=== PATIENT | male | born 1965 ===

== ENCOUNTER 2016-10-28 20:01 | Emergency (ER) | payer BC ==
--- NOTE | 2016-10-28 20:51 | DIAGNOSTIC IMAGING REPORT ---
PROCEDURE: XR TIBIA AND FIBULA - RIGHT INDICATION: TRAUMA/INJURY TECHNIQUE: AP and lateral views. COMPARISON: Comparison made radiographs of the right ankle (08/18/2013), and right tibia and fibula (12/15/2010). FINDINGS: Status post open reduction internal fixation of midshaft right fibular fracture transfixed with a side plate and multiple screws (anatomic position). No evidence of loosening. Status post repair of right distal tibiofibular syndesmosis with metal anchors and osteotomies traversing the distal tibia and fibula. Associated interosseous callus formation. No evidence of osteomyelitis. IMPRESSION: 1. Vessels of reduction internal fixation of right midshaft fibular fracture (metal hardware - - anatomic position). 2. Status post repair of distal tibiofibular syndesmosis. 3. No evidence of acute process.
--- NOTE | 2016-10-28 22:02 | ED ORDER SUMMARY ---
..... Patient: EAGLE PAL SR OrderSheet [facility] VisitID: [id number] [place] [address] 51y, M Registration Date/Time: 10/28/2016 ORDER SHEET Weight: 93.8 kg (stated) Allergies: Vicodin GENERAL ORDERS: US Venous Right Urgent (20:15 10/28/2016 EKoroleva P.A.-C) (Ack 20:18 ALawrence ER Tech1) (21:19 MCampbell) Tibia/Fibula Right Urgent (20:15 10/28/2016 EKoroleva P.A.-C) (Ack 20:18 ALawrence ER Tech1) (20:24 ALawrence ER Tech1) CBC w Diff Urgent (20:15 10/28/2016 EKoroleva P.A.-C) (Ack 20:18 ALawrence ER Tech1) (21:48 ALawrence ER Tech1) BMP Urgent (20:15 10/28/2016 EKoroleva P.A.-C) (Ack 20:18 ALawrence ER Tech1) (21:48 ALawrence ER Tech1) Sed Rate Urgent (20:15 10/28/2016 EKoroleva P.A.-C) (Ack 20:18 ALawrence ER Tech1) (21:49 ALawrence ER Tech1) CRP Urgent (20:15 10/28/2016 EKoroleva P.A.-C) (Ack 20:18 ALawrence ER Tech1) (21:49 ALawrence ER Tech1) PCT (Procalcitonin) Urgent (20:16 10/28/2016 EKoroleva P.A.-C) (Ack 20:18 ALawrence ER Tech1) (21:49 ALawrence ER Tech1) PT with INR Urgent (20:16 10/28/2016 EKoroleva P.A.-C) (Ack 20:18 ALawrence ER Tech1) (21:49 ALawrence ER Tech1) PTT Urgent (20:16 10/28/2016 EKoroleva P.A.-C) (Ack 20:18 ALawrence ER Tech1) (21:49 ALawrence ER Tech1) MEDICATION ORDERS: Percocet PO 5/325 mg (HIGH ALERT MEDICATION, NOW) (21:48 10/28/2016 Roland Gomez) (21:54 Jim Wiley) Bactrim DS PO (Tablet 800-160 mg) 1 tab (NOW) (22:00 10/28/2016 Roland Gomez) IV FLUIDS: ORDER SHEET NOTES: [Electronically signed by Indigo Magallanes P.A.-C (22:45 10/28/2016)] [Electronically signed by Radha Valladares R.N. (22:57 10/28/2016)] [Electronically locked/signed by Radha Valladares R.N. (22:57 10/28/2016)]
--- NOTE | 2016-10-28 22:02 | ED CLINICAL REPORT ---
Clinical Report - Physicians/Mid Levels [facility] [address] [place] [address] 10/28/2016 20:01 Patient: EAGLE PAL SR Time Seen: 20:18 Oct 28 2016. Arrived- By private vehicle. Historian- patient. HISTORY OF PRESENT ILLNESS Chief Complaint: Chief Complaint- Right lower extremity pain. The injury happened 8 days. This was not a twisting injury. Patient denies injury to the head or neck. (patient fell from about 7-8 days previously, has been having right lower extremity pain. Today pain worsened. Independent of any activity or movement. Patient with distant history of DVT. Patient with recent surgery, for hernia, as well as cholecystectomy.). REVIEW OF SYSTEMS The patient complains of pain on weight bearing. All systems otherwise negative, except as recorded above. PAST HISTORY The patient has not had a prior injury to the same area. ADDITIONAL NOTES The nursing notes have been reviewed. PHYSICAL EXAM Appearance: Alert. Head: Head atraumatic. ENT: Ears normal. Neck: Normal inspection. CVS: Normal heart rate and rhythm. Heart sounds normal. No cardiac murmur. Respiratory: No respiratory distress. Breath sounds normal. No decreased air movement or chest wall injury. Abdomen: No visible injury. Soft. Bowel sounds normal. No abdominal tenderness. Skin: Skin warm. (mild erythema at distal tib/fib with swelling). Extremities: Right knee. Right leg: erythema, tenderness and swelling located in the anterior and posterior aspect of mid and lower leg. No abrasion. Right ankle. No tenderness or swelling. Neuro, Vascular and Tendons: Vascular status intact. Motor intact. LABS, X-RAYS, AND EKG Rt Tib/Fib X-ray: (IMPRESSION: 1. Vessels of reduction internal fixation of right midshaft fibular fracture (metal hardware - - anatomic position). 2. Status post repair of distal tibiofibular syndesmosis. 3. No evidence of acute process. Electronically Final signed by:Clifton Bryant MD 10/28/2016 8:46:16 PM). Laboratory Tests: CBC w Diff: (DORINDA: 10/28/2016 21:45) ( MsgRcvd 10/28/2016 22:01) IP Test Result Flag Units (Reference) WHITE BLOOD COUNT 7.1 K/uL (4.5-11.5) RED BLOOD COUNT 4.33 L M/uL (4.50-5.90) CLOT FOUND IN SPECIMEN. PLATLET WAS NOT REPORTED PER ER. HEMOGLOBIN 12.9 L gm/dL (13.5-17.5) HEMATOCRIT 37.9 L % (41.0-53.0) MEAN CELL VOLUME 88 fL (80-100) MEAN CORPUSCULAR HGB 30 pg (26-34) MEAN CORPUSCULAR HGB CONC 34 g/dL (31-37) RED CELL DISTRIBUTION WIDTH 13.6 % (11.6-14.8) NEUTROPHIL % 57.0 % (50-75) LYMPH % 31.6 % (25-40) MONO % 7.5 % (3-14) EOSINOPHIL % 3.3 % (0-4) BASOPHIL % 0.6 % (0-2) PT with INR: (DORINDA: 10/28/2016 21:45) ( [facility] 10/28/2016 22:11) IP Test Result Flag Units (Reference) INR 0.9 (0.8-1.2) Low Intensity Therapy: INR 1.5-2.0 PT range 18.5-23.1Mod.Intensity Therapy: INR 2.0-3.0 PT range 23.1-31.5High Intensity Therapy: INR 2.5-3.5 PT range 27.4-35.5High Intensity Therapy 2: INR 3.0-4.0 PT range 31.5-39.3 [id number]: (DORINDA: 10/28/2016 20:33) ( [facility] 10/28/2016 21:28) Final results Test Result Flag Units (Reference) PROCALCITONIN <0.5 ng/mL (0-0.5) PCT Concentration: Interpretation : Risk/option for action PCT <=0.5 ng/mL : Systemic : Low risk forinfection(sepsis): progression to severeis not likely. : systemic infection.Local bacterial : CAUTION-PCT levelsinfection is : below 0.5 ng/mL do notpossible. : exclude an infection,because localizedinfections (withoutsystemic signs) may beassociated with suchlow levels. If PCT ismeasured very earlyafter a bacterialchallenge (usually <6hours), these valuesmay still be low. Inthis case PCT shouldbe re-assessed 6-24hours later. PCT >0.5 and : Systemic infection: Moderate risk for<= 2 ng/mL : (sepsis) is : progression to severepossible, but : systemic infection.other conditions : The patient should beare known to : closely monitoredelevate PCT. : both clinically andby re-assessing PCTwithin 6-24 hours. PCT > 2 ng/mL : Systemic infection: High risk for(sepsis) is likely: progression to severeunless other : systemic infection.causes are known. : PCT >= 10 ng/mL : Important systemic: High likelihood ofinflammatory : severe sepsis orresponse, almost : septic shock.exclusively due to:severe bacterial :sepsis or septic :shock. : BMP: (DORINDA: 10/28/2016 20:33) ( MsgRcvd 10/28/2016 21:03) Final results Test Result Flag Units (Reference) GLUCOSE 111 H mg/dL (70-110) BUN 12 mg/dL (7-18) CREATININE 0.8 mg/dL (0.6-1.3) Estimated GFR >60 mL/min Estimated GFR- >60 mL/min Note: Persistent reduction over 3 months in eGFR<60 mL/min/1.73 m2 defines CKD. Patients with eGFR values>=60 mL/min/1.73 m2 may also have CKD if evidence ofpersistent proteinuria. Additional information may be foundat www.kidney.org. SODIUM 139 mmol/L (136-145) POTASSIUM 3.9 mmol/L (3.5-5.1) CHLORIDE 105 mmol/L (98-107) CARBON DIOXIDE 26 mmol/L (21-32) CALCIUM 8.7 mg/dL (8.5-10.1) C-REACTIVE PROTEIN < 0.2 mg/dL (0.0-0.9) . Note - Tests: (US VEnous R LE: neg for dvt). PROGRESS AND PROCEDURES Course of Care: patient with no signs of DVT. He is afebrile. Normal cardiac. Labs are largely unremarkable, no signs of leukocytosis. Area of erythema present, concerning for acute cellulitis. Patient with good distal pulses, and words to the extremity. No signs of acute fracture. Patient is asked to elevate his right lower extremity, follow up with his primary care provider. 10/28/2016 22:31 BP: 112/63. HR: 52. RR: 16. O2 saturation: 100%. Temp: 97.7 F. Pain level now: 8/10. Patient is stable. Patient/family counseled. Disposition: Discharged. CLINICAL IMPRESSION Cellulitis of the right lower leg. INSTRUCTIONS (NO SIGNS OF BLOOD CLOT Xray with no signs of broken bones). Prescription Medications: Oxycodone/APAP 5 mg/325 mg: take 1 tablet orally every 6 hours as needed for pain. Dispense ten (10). No refill. Bactrim DS 800 mg / 160 mg: take 1 tablet orally every 12 hours for 10 days. No refill. Substitution is permissible. Follow-up: Follow up with your doctor 2-3 days [place] in two for wound check. (Electronically signed by Indigo Magallanes P.A.-C 10/28/2016 22:45)
--- NOTE | 2016-10-28 22:02 | ED NURSING NOTES ---
Clinical Report - Nurses [place] [address] [place] [address] 10/28/2016 20:01 Patient: EAGLE PAL SR TRIAGE Triage time 20:Oct 28 2016. Acuity: LEVEL 3. Chief Complaint: RIGHT LOWER EXTREMITY PAIN, SWELLING and REDNESS. Alert. No acute distress. JACK COMA SCORE: Ear[place] Coma Scale: 15- eyes open spontaneously (4); best verbal response- oriented x 4 (5); best motor response- obeys commands (6). --20:25 Radha Valladares R.N. 20:10 10/28/16. BP: 123/75. HR: 56. RR: 12. O2 saturation: 99%. Temp: 97.9 F. Pain level now: 12/11. --20:25 Radha Valladares R.N. Weight: 93.8 kg stated. Height/Length: 70 inches Per Patient. BMI: 29.7. --20:15 Radha Valladares R.N. Medications CloNIDine HCl Oral (Tablet 0.1 mg) 1 tablet, daily. --20:18 Radha Valladares R.N. Docusate Sodium Oral (Capsule 100 mg) 2 capsules, as needed. --20:18 Radha Valladares R.N. Ibuprofen Oral, as needed. --20:19 Radha Valladares R.N. Gabapentin (PHN) Oral (Tablet 300 mg) 1 tablet. --20:19 Radha Valladares R.N. Omeprazole Oral (Tablet Delayed Release 20 mg) 1 tablet, daily. --20:20 Radha Valladares R.N. OxyCODONE HCl Oral (Tablet 5 mg) 2 tablets, 4x a day. --20:20 Radha Valladares R.N. Suboxone Sublingual (Film 8-2 mg), daily. --20:21 Radha Valladares R.N. Tylenol Oral, PRN. --20:22 Radha Valladares R.N. Allergies Vicodin. --20:22 Radha Valladares R.N. History Arrived by private vehicle. Historian: patient. Accompanied by family and spouse. Injury occurred. Location of injuries: right leg. This occurred today. ( pt states that he fell off a boat a few days ago and is unsure if he injured his leg at that time.). He has had swelling, redness and trouble walking. Treatment [employer]: None. PAST MEDICAL HX: Tetanus status: up-to-date. Immunizations: status is unknown. SOCIAL HX: Smoker- current status unknown. No alcohol use or drug use. No infectious disease exposure. SELF HARM ASSESSMENT: A self harm assessment was performed. The patient answered "no" to the question "Do you have thoughts of harming or killing yourself?" and "Have you recently had thoughts about harming or killing others?". FALL RISK ASSESSMENT: Fall risk assessment completed. No fall risk identified. NUTRITIONAL RISK ASSESSMENT: The nutritional risk assessment revealed no deficiencies. FUNCTIONAL ASSESSMENT: Functional assessment: no impairments noted. LEARNING NEEDS ASSESSMENT: The learning needs assessment revealed no barriers. ABUSE ASSESSMENT: Abuse assessment: The patient was asked "Do you feel safe in your home?". SKIN INTEGRITY ASSESSMENT: Skin integrity risk assessment completed. No skin integrity risk identified. --20:25 Radha Valladares R.N. 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 Substance Abuse. Paresthesia. Back Injury. Lumbar Strain. Abdominal Pain. Hernia. Back Pain. Prediabetic. Cellulitis. Osumsvy-Vecbl-Qlebf disease. Hypertension. Lower Extremity Pain. Fall. Fibula Fracture. Sprain. Diabetes Mellitus. Tetanus Status. Immunizations. --20:23 Radha Valladares R.N. ADDITIONAL SURGERIES: Ankle surgery. Cholecystectomy. Hernia Repair. Kidney surgery. Previous Abdominal Surgery. --20:23 Radha Valladares R.N. Interventions ID band on patient. To room. --20:25 Radha Valladares R.N. PHYSICAL ASSESSMENT Ambulatory to room. GENERAL / NEURO / PSYCH: Oriented X 4. Alert. Appears in pain. He has had pre-existing numbness of the right leg and foot. EXTREMITIES: Erythema to right leg, right ankle and right foot. Limited ROM present in the left ankle. Non-pitting edema of the right lower extremity involving the foot, ankle and lower leg. Right leg: tenderness, swelling and erythema. Right ankle: tenderness, swelling and erythema. SKIN: Skin is warm and dry. --20:26 Radha Valladares R.N. NURSING PROGRESS NOTES Patient gowned. Patient identifiers checked. Call light placed in reach. Side rails up x 1. Bed placed in lowest position. Brakes of bed on. --20:26 Radha Valladares R.N. Patient ID band checked for patient name and birthdate: patient confirmed. Instructions provided to collect clean catch urine and patient verbalized understanding. Clean catch urine collected with return of yellow-colored clear urine; sample sent to lab for urinalysis, culture and drug screen. Specimen labeled in the presence of the patient. --20:29 Radha Valladares R.N. 21:26 10/28/16. BP: 115/70. HR: 55. RR: 16. O2 saturation: 100%. Pain level now: 12/11. --21:26 Radha Valladares R.N. The patient is calm. GENERAL / NEURO / PSYCH: Alert. Oriented X 4. RESPIRATORY: No respiratory distress. CVS: Capillary refill less than 2 seconds. SKIN: Skin is warm and dry. --21:26 Radha Valladares R.N. 21:45. Patient ID band checked for patient name and birthdate: patient confirmed. Blood samples drawn from the right forearm with syringe and 23g butterfly by tech per protocol ; labeled in presence of the patient and sent to lab: purple and blue top. --21:47 Zuleika Miller ER Tech1 21:54 10/28/2016 Percocet (Oxycodone-Acetaminophen) PO 5/325 mg Tablets 1 tab given. Allergies verified, confirmed 5 rights and sedative warning given to the patient. --21:54 Radha Valladares R.N. DISPOSITION / DISCHARGE Departure time: 22:33 Cristian 27 2016. Condition at departure: improved. No learning barriers present. Discharge instructions provided and reviewed with the patient. Reviewed medication(s) side effects, precautions, dosing and course information. Prescription(s) given to the patient. Reviewed referral to a primary care physician for followup. Patient verbalized understanding. Written instructions provided in Monegasque. The patient was discharged home and accompanied by spouse. He left the Emergency Department ambulatory and via private vehicle. Spouse driving. FALL RISK ASSESSMENT: Fall risk assessment completed. No fall risk identified. --22:33 Radha Valladares R.N. 22:31 10/28/16. BP: 112/63. HR: 52. RR: 16. O2 saturation: 100%. Temp: 97.7 F. Pain level now: 12/11. --22:33 Radha Valladares R.N. Locked/Released at 10/28/2016 22:57 by Radha Valladares R.N.
--- NOTE | 2016-10-28 22:02 | ED ORDER SUMMARY ---
..... Patient: EAGLE PAL SR OrderSheet [facility] VisitID: [id number] [place] [address] 51y, M Registration Date/Time: 10/28/2016 ORDER SHEET Weight: 93.8 kg (stated) Allergies: Vicodin GENERAL ORDERS: US Venous Right Urgent (20:15 10/28/2016 EKoroleva P.A.-C) (Ack 20:18 ALawrence ER Tech1) (21:19 MCampbell) Tibia/Fibula Right Urgent (20:15 10/28/2016 EKoroleva P.A.-C) (Ack 20:18 ALawrence ER Tech1) (20:24 ALawrence ER Tech1) CBC w Diff Urgent (20:15 10/28/2016 EKoroleva P.A.-C) (Ack 20:18 ALawrence ER Tech1) (21:48 ALawrence ER Tech1) BMP Urgent (20:15 10/28/2016 EKoroleva P.A.-C) (Ack 20:18 ALawrence ER Tech1) (21:48 ALawrence ER Tech1) Sed Rate Urgent (20:15 10/28/2016 EKoroleva P.A.-C) (Ack 20:18 ALawrence ER Tech1) (21:49 ALawrence ER Tech1) CRP Urgent (20:15 10/28/2016 EKoroleva P.A.-C) (Ack 20:18 ALawrence ER Tech1) (21:49 ALawrence ER Tech1) PCT (Procalcitonin) Urgent (20:16 10/28/2016 EKoroleva P.A.-C) (Ack 20:18 ALawrence ER Tech1) (21:49 ALawrence ER Tech1) PT with INR Urgent (20:16 10/28/2016 EKoroleva P.A.-C) (Ack 20:18 ALawrence ER Tech1) (21:49 ALawrence ER Tech1) PTT Urgent (20:16 10/28/2016 EKoroleva P.A.-C) (Ack 20:18 ALawrence ER Tech1) (21:49 ALawrence ER Tech1) MEDICATION ORDERS: Percocet PO 5/325 mg (HIGH ALERT MEDICATION, NOW) (21:48 10/28/2016 Roland Gomez) (21:54 Jim Wiley) Bactrim DS PO (Tablet 800-160 mg) 1 tab (NOW) (22:00 10/28/2016 Roland Gomez) IV FLUIDS: ORDER SHEET NOTES: [Electronically signed by Indigo Magallanes P.A.-C (22:45 10/28/2016)] [Electronically signed by Radha Valladares R.N. (22:57 10/28/2016)] [Electronically locked/signed by Radha Valladares R.N. (22:57 10/28/2016)]
--- NOTE | 2016-10-28 22:24 | DIAGNOSTIC IMAGING REPORT ---
PROCEDURE: US VENOUS - RIGHT EXT INDICATION: SWELLING TECHNIQUE: Color Doppler duplex imaging of the deep and superficial venous system without and with compression. COMPARISON: Comparison is made to venous ultrasound right lower extremity on 15:16. FINDINGS: Deep and superficial venous system of the right lower extremity is within normal limits. There is no evidence of deep vein thrombosis or superficial thrombophlebitis. There are prominent superficial varicosities in the lateral calf, but no evidence of phlebothrombosis. IMPRESSION: 1. Prominent superficial varicosities in the right lateral calf. 2. Otherwise negative venous ultrasound of the right lower extremity. No evidence of deep vein thrombosis or superficial thrombophlebitis.
--- NOTE | 2016-10-28 22:57 | ED MAR SUMMARY ---
..... Medication Administration Record [facility] [address] [place] [address] Patient: EAGLE PAL Visit ID: [id number] 51y, M Weight: 93.8 kg Height/Length: 70 in BMI: 29.7 ALLERGIES: Vicodin Given 21:54 10/28/2016 Radha Valladares R.N. Medication Administered: PERCOCET [PO] (OXYCODONE-ACETAMINOPHEN), Dose: 1 tab 5/325 mg Tablets PO. Medication Ordered: Percocet PO 5/325 mg (HIGH ALERT MEDICATION, NOW).
--- NOTE | 2016-10-28 22:57 | ED MED RECONCILIATION SUMMARY ---
Patient: EAGLE PAL SR Medication Reconciliation Report [facility] VisitID: [id number] [place] [address] 51y, M Registration Date/Time: 10/28/2016 Weight: 93.8 kg Height/Length: 70 in. BMI: 29.7 ALLERGIES: Vicodin The patient's Home Medications are listed below: THE FOLLOWING MEDICATIONS NEED TO BE RECONCILED: CloNIDine HCl Oral (0.1 mg) 1 tablet, daily Docusate Sodium Oral (100 mg) 2 capsules Gabapentin (PHN) Oral (300 mg) 1 tablet Ibuprofen Oral Omeprazole Oral (20 mg) 1 tablet, daily OxyCODONE HCl Oral (5 mg) 2 tablets, 4x a day Suboxone Sublingual (8-2 mg), daily Tylenol Oral, PRN The source(s) of the original Home Medication information: Not obtained. The following Medications were given to the patient in the Emergency Department: Percocet [PO] PO 1 tab, administered: 10/28/2016 9:54:00 PM The following Medications were prescribed to the patient: Oxycodone/APAP 5 mg/325 mg: take 1 tablet orally every 6 hours as needed for pain. Dispense ten (10). No refill. -- Indigo Magallanes PNancyAGisele Bactrim DS 800 mg / 160 mg: take 1 tablet orally every 12 hours for 10 days. No refill. Substitution is permissible. -- Indigo Magallanes P.A.-C
--- NOTE | 2016-10-28 22:57 | ED MAR SUMMARY ---
..... Medication Administration Record [facility] [address] [place] [address] Patient: EAGLE PAL Visit ID: [id number] 51y, M Weight: 93.8 kg Height/Length: 70 in BMI: 29.7 ALLERGIES: Vicodin Given 21:54 10/28/2016 Radha Valladares R.N. Medication Administered: PERCOCET [PO] (OXYCODONE-ACETAMINOPHEN), Dose: 1 tab 5/325 mg Tablets PO. Medication Ordered: Percocet PO 5/325 mg (HIGH ALERT MEDICATION, NOW).
--- NOTE | 2016-10-28 22:57 | ED DISCHARGE INSTRUCTIONS ---
Patient: EAGLE PAL SR General Instructions [facility] VisitID: [id number] [place] [address] 51y, M Registration Date/Time: 10/28/2016 Cellulitis of the right lower leg. INSTRUCTIONS (NO SIGNS OF BLOOD CLOT Xray with no signs of broken bones). Prescription Medications: Oxycodone/APAP 5 mg/325 mg: take 1 tablet orally every 6 hours as needed for pain. Dispense ten (10). No refill. Bactrim DS 800 mg / 160 mg: take 1 tablet orally every 12 hours for 10 days. No refill. Substitution is permissible. Follow-up: Follow up with your doctor 2-3 days Thursday in two for wound check. ADDITIONAL INFORMATION Cellulitis You have an infection of the skin known as cellulitis. This usually starts with a scrape, cut, insect bite, blister or other opening in the skin which becomes infected. This is a serious condition. It must be watched closely to be sure the infection is not spreading. With antibiotic treatment, the size of the red area will gradually shrink in size until the skin returns to normal. This will take 7-10 days. The red area should never increase in size once the antibiotic medicine has been started. Occasionally, an infection will be resistant to one antibiotic and another one will have to be used. Home Care: 1) Limit the use of the affected part, since excess movement can cause the infection to spread. 2) If the infection is on your leg, walk as little as possible during the first few days of the treatment. Keep your leg elevated while sitting. This will reduce swelling. 3) Take all of the antibiotic medicine exactly as directed until it is gone. Be careful not to miss any doses, especially during the first seven days. Follow Up with your doctor or this facility as directed. Check the infected area daily for the warning signs listed below. Get Prompt Medical Attention if any of the following occur: -- Spreading area of redness -- Increasing swelling or pain -- Appearance of pus or drainage -- Fever over 100.4 F (38.0 C) oral, or over 101.4 F (38.6 C) rectal, after two days on antibiotics Oxycodone Hydrochloride, Acetaminophen Oral tablet What is this medicine? ACETAMINOPHEN; OXYCODONE (a set a ELLY mega fen; ox i KOE done) is a pain reliever. It is used to treat mild to moderate pain. How should I use this medicine? Take this medicine by mouth with a full glass of water. Follow the directions on the prescription label. Take your medicine at regular intervals. Do not take your medicine more often than directed. Talk to your posting clerk regarding the use of this medicine in children. Special care may be needed. Patients over 65 years old may have a stronger reaction and need a smaller dose. What side effects may I notice from receiving this medicine? Side effects that you should report to your doctor or health managed care analyst as soon as possible: allergic reactions like skin rash, itching or hives, swelling of the face, lips, or tongue breathing difficulties, wheezing confusion light headedness or fainting spells severe stomach pain yellowing of the skin or the whites of the eyes Side effects that usually do not require medical attention (report to your doctor or health managed care analyst if they continue or are bothersome): dizziness drowsiness nausea vomiting What may interact with this medicine? alcohol antihistamines barbiturates like amobarbital, butalbital, butabarbital, methohexital, pentobarbital, phenobarbital, thiopental, and secobarbital benztropine drugs for bladder problems like solifenacin, trospium, oxybutynin, tolterodine, hyoscyamine, and methscopolamine drugs for breathing problems like ipratropium and tiotropium drugs for certain stomach or intestine problems like propantheline, homatropine methylbromide, glycopyrrolate, atropine, belladonna, and dicyclomine general anesthetics like etomidate, ketamine, nitrous oxide, propofol, desflurane, enflurane, halothane, isoflurane, and sevoflurane medicines for depression, anxiety, or psychotic disturbances medicines for sleep muscle relaxants naltrexone narcotic medicines (opiates) for pain phenothiazines like perphenazine, thioridazine, chlorpromazine, mesoridazine, fluphenazine, prochlorperazine, promazine, and trifluoperazine scopolamine tramadol trihexyphenidyl What if I miss a dose? If you miss a dose, take it as soon as you can. If it is almost time for your next dose, take only that dose. Do not take double or extra doses. Where should I keep my medicine? Keep out of the reach of children. This medicine can be abused. Keep your medicine in a safe place to protect it from theft. Do not share this medicine with anyone. Selling or giving away this medicine is dangerous and against the law. Store at room temperature between 20 and 25 degrees C (68 and 77 degrees F). Keep container tightly closed. Protect from light. This medicine may cause accidental overdose and if it is taken by other adults, children, or pets. Flush any unused medicine down the toilet to reduce the chance of harm. Do not use the medicine after the expiration date. What should I tell my health care provider before I take this medicine? They need to know if you have any of these conditions: brain tumor Crohn's disease, inflammatory bowel disease, or ulcerative colitis drink more than 3 alcohol containing drinks per day drug abuse or addiction head injury heart or circulation problems kidney disease or problems going to the bathroom liver disease lung disease, asthma, or breathing problems an unusual or allergic reaction to acetaminophen, oxycodone, other opioid analgesics, other medicines, foods, dyes, or preservatives or trying to get breast-feeding What should I watch for while using this medicine? Tell your doctor or health managed care analyst if your pain does not go away, if it gets worse, or if you have new or a different type of pain. You may develop tolerance to the medicine. Tolerance means that you will need a higher dose of the medication for pain relief. Tolerance is normal and is expected if you take this medicine for a long time. Do not suddenly stop taking your medicine because you may develop a severe reaction. Your body becomes used to the medicine. This does NOT mean you are addicted. Addiction is a behavior related to getting and using a drug for a non-medical reason. If you have pain, you have a medical reason to take pain medicine. Your doctor will tell you how much medicine to take. If your doctor wants you to stop the medicine, the dose will be slowly lowered over time to avoid any side effects. You may get drowsy or dizzy. Do not drive, use machinery, or do anything that needs mental alertness until you know how this medicine affects you. Do not stand or sit up quickly, especially if you are an older patient. This reduces the risk of dizzy or fainting spells. Alcohol may interfere with the effect of this medicine. Avoid alcoholic drinks. There are different types of narcotic medicines (opiates) for pain. If you take more than one type at the same time, you may have more side effects. Give your health care provider a list of all medicines you use. Your doctor will tell you how much medicine to take. Do not take more medicine than directed. Call emergency for help if you have problems breathing. The medicine will cause constipation. Try to have a bowel movement at least every 2 to 3 days. If you do not have a bowel movement for 3 days, call your doctor or health managed care analyst. Do not take Tylenol (acetaminophen) or medicines that have acetaminophen with this medicine. Too much acetaminophen can be very dangerous. Many nonprescription medicines contain acetaminophen. Always read the labels carefully to avoid taking more acetaminophen. Sulfamethoxazole, Trimethoprim Oral tablet What is this medicine? SULFAMETHOXAZOLE; TRIMETHOPRIM or SMX-TMP (suhl fuh meth OK marguerite zohl; trye METH oh prim) is a combination of a sulfonamide antibiotic and a second antibiotic, trimethoprim. It is used to treat or prevent certain kinds of bacterial infections. It will not work for colds, flu, or other viral infections. How should I use this medicine? Take this medicine by mouth with a full glass of water. Follow the directions on the prescription label. Take your medicine at regular intervals. Do not take it more often than directed. Do not skip doses or stop your medicine early. Talk to your posting clerk regarding the use of this medicine in children. Special care may be needed. This medicine has been used in children as young as 2 months of age. What side effects may I notice from receiving this medicine? Side effects that you should report to your doctor or health managed care analyst as soon as possible: allergic reactions like skin rash or hives, swelling of the face, lips, or tongue breathing problems fever or chills, sore throat irregular heartbeat, chest pain joint or muscle pain pain or difficulty passing urine red pinpoint spots on skin redness, blistering, peeling or loosening of the skin, including inside the mouth unusual bleeding or bruising unusually weak or tired yellowing of the eyes or skin Side effects that usually do not require medical attention (report to your doctor or health managed care analyst if they continue or are bothersome): diarrhea dizziness headache loss of appetite nausea, vomiting nervousness What may interact with this medicine? Do not take this medicine with any of the following medications: aminobenzoate potassium dofetilide metronidazole This medicine may also interact with the following medications: ZARINA inhibitors like benazepril, enalapril, lisinopril, and ramipril cyclosporine digoxin diuretics indomethacin medicines for diabetes methenamine methotrexate phenytoin potassium supplements pyrimethamine sulfinpyrazone tricyclic antidepressants warfarin What if I miss a dose? If you miss a dose, take it as soon as you can. If it is almost time for your next dose, take only that dose. Do not take double or extra doses. Where should I keep my medicine? Keep out of the reach of children. Store at room temperature between 20 to 25 degrees C (68 to 77 degrees F). Protect from light. Throw away any unused medicine after the expiration date. What should I tell my health care provider before I take this medicine? They need to know if you have any of these conditions: anemia asthma being treated with anticonvulsants if you frequently drink alcohol containing drinks kidney disease liver disease low level of folic acid or [id number] dehydrogenase poor nutrition or malabsorption porphyria severe allergies thyroid disorder an unusual or allergic reaction to sulfamethoxazole, trimethoprim, sulfa drugs, other medicines, foods, dyes, or preservatives or trying to get breast-feeding What should I watch for while using this medicine? Tell your doctor or health managed care analyst if your symptoms do not improve. Drink several glasses of water a day to reduce the risk of kidney problems. Do not treat diarrhea with over the counter products. Contact your doctor if you have diarrhea that lasts more than 2 days or if it is severe and watery. This medicine can make you more sensitive to the sun. Keep out of the sun. If you cannot avoid being in the sun, wear protective clothing and use a sunscreen. Do not use sun lamps or tanning beds/booths. You have been given the following additional information: Cellulitis Oxycodone Hydrochloride, Acetaminophen Oral tablet Sulfamethoxazole, Trimethoprim Oral tablet (Electronically signed by Indigo Magallanes P.A.-C 10/28/2016 22:45)
--- NOTE | 2016-10-28 22:57 | ED MED RECONCILIATION SUMMARY ---
Patient: EAGLE PAL SR Medication Reconciliation Report [facility] VisitID: [id number] [place] [address] 51y, M Registration Date/Time: 10/28/2016 Weight: 93.8 kg Height/Length: 70 in. BMI: 29.7 ALLERGIES: Vicodin The patient's Home Medications are listed below: THE FOLLOWING MEDICATIONS NEED TO BE RECONCILED: CloNIDine HCl Oral (0.1 mg) 1 tablet, daily Docusate Sodium Oral (100 mg) 2 capsules Gabapentin (PHN) Oral (300 mg) 1 tablet Ibuprofen Oral Omeprazole Oral (20 mg) 1 tablet, daily OxyCODONE HCl Oral (5 mg) 2 tablets, 4x a day Suboxone Sublingual (8-2 mg), daily Tylenol Oral, PRN The source(s) of the original Home Medication information: Not obtained. The following Medications were given to the patient in the Emergency Department: Percocet [PO] PO 1 tab, administered: 10/28/2016 9:54:00 PM The following Medications were prescribed to the patient: Oxycodone/APAP 5 mg/325 mg: take 1 tablet orally every 6 hours as needed for pain. Dispense ten (10). No refill. -- Indigo Magallanes PNancyAGisele Bactrim DS 800 mg / 160 mg: take 1 tablet orally every 12 hours for 10 days. No refill. Substitution is permissible. -- Indigo Magallanes P.A.-C
== END 2016-10-28 22:30 | disposition home or self-care (01) ==
LOC: ED SRH 20:01
DX: L03.115 Cellulitis of right lower limb (principal); Z79.899 Other long term (current) drug therapy; Z88.5 Allergy status to narcotic agent; E11.9 Type 2 diabetes mellitus without complications; I10 Essential (primary) hypertension